=== PATIENT | female | born 1985 | race Caucasian/White ===

== ENCOUNTER 2023-06-25 10:53 | Inpatient (IN) | payer OTHER ==
[2023-06-25] MEDS: ELECTROLYTE-148 SOLN 1,000 ML IV SCH ×3 (13:19→22:54)
[2023-06-25 13:42] VITALS: BMI 35.4
[2023-06-25 14:24] LABS: BASO % 0.1 % (0-2.0); EOS % 0.1 % (0-4.5); HEMATOCRIT 39.2 % (32.4-45.2); HEMOGLOBIN 12.7 GM/dL (10.7-15.3); LYMPH % 14.4 % (8-40); MCH 29.1 pg (25.7-33.7); MCHC 32.4 g/dl (32.0-36.0); MEAN CELL VOLUME 89.8 fl (80-96); MEAN PLT VOLUME 9.9 fl (7.5-11.1); MONO % 4.2 % (3.8-10.2); NEUT % 81.2 % (42.8-82.8); PLATELET COUNT 230 10^3/uL (134-434); RBC 4.36 M/mm3 (3.60-5.2); RDW 13.3 % (11.6-15.6); WHITE BLOOD COUNT 15.2 K/mm3 (4.0-10.0)
[2023-06-25] MEDS ORDERED: NALOXONE HCL 0.4 MG/ML VIAL IVPUSH PRN (14:29)
[2023-06-25 14:31] LABS: INR 0.93 (0.83-1.09); PROTHROMBIN TIME (PATIENT) 10.8 SEC (9.7-13.0)
[2023-06-25 14:34] LABS: ACTIVATED PTT 25.5 SECONDS (25.2-36.5)
[2023-06-25] MEDS ORDERED: FENTANYL/BUPIVACAINE/NS/PF - PCEA - 50 ML DISP.SYRIN EP ONE ×3 (14:35→22:43)
[2023-06-25 14:42] LABS: CALCIUM 8.9 mg/dL (8.5-10.1)
[2023-06-25 14:43] LABS: BLOOD UREA NITROGEN 10.9 mg/dL (7-18)
[2023-06-25 14:46] LABS: CREATININE 0.6 mg/dL (0.55-1.3)
[2023-06-25] MEDS ORDERED: LIDOCAINE HCL/EPINEPHRINE/PF 10 ML VIAL ONE (14:47)
[2023-06-25] MEDS ORDERED: BUPIVACAINE HCL/PF 0.25% (2.5MG/ML) 10 ML VIAL ONE ×2 (14:47→19:16)
[2023-06-25] MEDS ORDERED: FENTANYL CITRATE/PF 50 MCG/ML VIAL ONE ×2 (14:47→19:16)
[2023-06-25] MEDS: FENTANYL/BUPIVACAINE/NS/PF - PCEA - 50 ML DISP.SYRIN EP SCH ×3 (15:09→22:52)
[2023-06-25] MEDS ORDERED: OXYTOCIN 30 UNITS in 0.9% NS 30 UNIT/500 ML INFUS.BAG IVPB SCH (18:00)
[2023-06-25] MEDS ORDERED: ACETAMINOPHEN 1000 MG/100 ML BAG IVPB ONE (22:18)
[2023-06-25] MEDS ORDERED: AMPICILLIN - 2 GM in SODIUM CHLORIDE 100 ML IVPB SCH (22:18)
[2023-06-25] MEDS ORDERED: ACETAMINOPHEN INJECTION 100 ML IVPB ONE (22:24)
[2023-06-25] MEDS ORDERED: AMPICILLIN SODIUM 2 GM VIAL ONE (22:43)
[2023-06-26] MEDS ORDERED: OXYTOCIN 20 UNITS in 0.9% NS 20 UNIT/1,000 ML INFUS.BAG IV ONE (01:25)
[2023-06-26] MEDS ORDERED: LIDOCAINE HCL 1% PRESERVATIVE FREE - 30ML VIAL ONE (01:25)
[2023-06-26] MEDS: FENTANYL/BUPIVACAINE/NS/PF - PCEA - 50 ML DISP.SYRIN EP SCH ×2 (01:46→15:58)
[2023-06-26] MEDS ORDERED: FENTANYL/BUPIVACAINE/NS/PF - PCEA - 50 ML DISP.SYRIN EP ONE (01:46)
[2023-06-26] MEDS ORDERED: BENZOCAINE 28 GM HEMORRHOIDAL OINTMENT TP PRN (03:37)
[2023-06-26] MEDS ORDERED: oxyCODONE HCL 5 MG TABLET PO PRN (03:37)
[2023-06-26] MEDS ORDERED: BISACODYL 10 MG SUPP.RECT RC PRN (03:37)
[2023-06-26] MEDS ORDERED: METHYLERGONOVINE MALEATE 0.2 MG/1 ML AMP IM PRN (03:37)
[2023-06-26] MEDS ORDERED: WITCH HAZEL 50% (TUCKS) 40 PAD/JAR PAD TP PRN (03:37)
[2023-06-26] MEDS ORDERED: OXYTOCIN 20 UNITS in 0.9% NS 20 UNIT/1,000 ML INFUS.BAG IV SCH (03:45)
[2023-06-26] MEDS: IBUPROFEN 600 MG TABLET (FP) PO PRN ×3 (05:15→21:14)
[2023-06-26] MEDS: BENZOCAINE 20% 57 GM BOTTLE TP PRN (05:15)
[2023-06-26] MEDS: PRENATAL VITAMINS W/ FOLIC ACID TABLET (FP) PO SCH (09:23)
[2023-06-26 10:44] VITALS: RESP 18
[2023-06-26] MEDS: ELECTROLYTE-148 SOLN 1,000 ML IV SCH (15:58)
[2023-06-26] MEDS: ACETAMINOPHEN 325 MG TABLET (FP) PO PRN (18:20)
[2023-06-27] MEDS: IBUPROFEN 600 MG TABLET (FP) PO PRN ×2 (04:40→16:06)
[2023-06-27 06:42] LABS: BASO % 0.2 % (0-2.0); EOS % 0.5 % (0-4.5); HEMATOCRIT 35.2 % (32.4-45.2); HEMOGLOBIN 11.5 GM/dL (10.7-15.3); LYMPH % 20.6 % (8-40); MCH 29.3 pg (25.7-33.7); MCHC 32.7 g/dl (32.0-36.0); MEAN CELL VOLUME 89.7 fl (80-96); MEAN PLT VOLUME 9.8 fl (7.5-11.1); MONO % 5.9 % (3.8-10.2); NEUT % 72.8 % (42.8-82.8); PLATELET COUNT 196 10^3/uL (134-434); RBC 3.93 M/mm3 (3.60-5.2); RDW 13.5 % (11.6-15.6); WHITE BLOOD COUNT 15.2 K/mm3 (4.0-10.0)
[2023-06-27 07:56] LABS: POC NITRAZINE POS
[2023-06-27] MEDS: ACETAMINOPHEN 325 MG TABLET (FP) PO PRN (07:56)
[2023-06-27] MEDS: PRENATAL VITAMINS W/ FOLIC ACID TABLET (FP) PO SCH (10:03)
[2023-06-27] MEDS: BENZOCAINE 20% 57 GM BOTTLE TP PRN (10:11)
[2023-06-27] MEDS ORDERED: SENNOSIDES/DOCUSATE COMBO (SENNA PLUS) TABLET (UD) PO PRN (22:00)
[2023-06-28] MEDS: IBUPROFEN 600 MG TABLET (FP) PO PRN ×2 (00:25→09:09)
[2023-06-28 08:32] VITALS: BP 110/66; PULSE 83; TEMP 97.4
[2023-06-28] MEDS: PRENATAL VITAMINS W/ FOLIC ACID TABLET (FP) PO SCH (09:09)
== END 2023-06-28 13:20 | disposition home or self-care (01) | DRG 560 ==
LOC: JDEL 10:53 → JLDR 12:45 → J3W 06-26 04:37
PROVIDERS: ADMIT Specialist; ATTEND Specialist
PROC: 0HQ9XZZ Repair Perineum Skin, External Approach (ICD-10-PCS; principal; 2023-06-26)
PROC: 10E0XZZ Delivery of Products of Conception, External Approach (ICD-10-PCS; 2023-06-26)
DX: O42.92 Full-term premature rupture of membranes, unspecified as to length of time between rupture and onset of labor (principal); O70.0 First degree perineal laceration during delivery; Z3A.38 38 weeks gestation of pregnancy; Z37.0 Single live birth
CPT/HCPCS: 36415; 59025; 80048; 83986-QW; 85025; 85610; 85730; 86780; 86850; 86900; 86901

== ENCOUNTER 2024-07-25 04:35 | Day surgery (SDC) | payer OTHER ==
[2024-07-24 12:16] VITALS: BMI 33.1
[2024-07-25] MEDS: ceFAZolin SODIUM 1 GM VIAL IVPB ONE (12:35)
[2024-07-25] MEDS ORDERED: MIDAZOLAM HCL 2 MG/2 ML SINGLE DOSE VIAL ONE (14:07)
[2024-07-25] MEDS ORDERED: PROPOFOL 40 ML ONE (14:07)
[2024-07-25] MEDS ORDERED: BUPIVACAINE HCL/PF 0.25% (2.5MG/ML) 10 ML VIAL ONE (14:19)
[2024-07-25] MEDS: BUPIVACAINE HCL/PF 0.25% (2.5MG/ML) 10 ML VIAL IJ ONE (14:59)
[2024-07-25] MEDS ORDERED: oxyCODONE HCL 5 MG TABLET PO PRN (15:18)
[2024-07-25] MEDS: SODIUM CHLORIDE 1,000 ML IV SCH (15:28)
[2024-07-25 16:30] VITALS: RESP 16
[2024-07-25 17:31] VITALS: BP 115/72; PULSE 85; TEMP 97.5
== END 2024-07-25 17:37 | disposition home or self-care (01) ==
LOC: JASU-SURG 04:35
PROVIDERS: ATTEND Surgery Surgical Oncology
PROC: 0HBY0ZZ Excision of Supernumerary Breast, Open Approach (ICD-10-PCS; principal; 2024-07-25 13:00)
DX: Q83.1 Accessory breast (principal)
CPT/HCPCS: 88305-TC; 94760